=== PATIENT | female | born 1950 | race Caucasian/White ===

== ENCOUNTER 2018-01-01 06:50 | Emergency (ER) | payer MEDICARE, OTHER ==
[~2018-01-01] VITALS: Ht 170.2 cm; Wt 80.3 kg
[~2018-01-01 06:50] MED LIST: AMBIEN 5 MG TABL5 M1 PO; FLEXERIL PO; MEDROLDOSEPACK PO; RIZATRIPTAN5 M1 PO
[2018-01-01 07:30] LABS: URINE BILIRUBIN NEGATIVE (Negative); URINE BLOOD NEGATIVE (Negative); URINE CLARITY CLEAR; URINE COLOR YELLOW; URINE GLUCOSE-RANDOM NEGATIVE (Negative); URINE KETONES NEGATIVE (Negative); URINE LEUKOCYTES-REFLEX TRACE (Negative); URINE NITRITE-REFLEX NEGATIVE (Negative); URINE PROTEIN NEGATIVE (Negative); URINE SPECIFIC GRAVITY 1.025 (1.005-1.030); URINE UROBILINOGEN 0.2 E.U./dl (0.2-1.0)
[2018-01-01 07:39] LABS: ABSOLUTE EOSINOPHILS 0.2 thou/uL (0.0-0.7); ABSOLUTE LYMPHOCYTES 1.5 thou/uL (0.8-5.3); ABSOLUTE MONOCYTES 0.3 thou/uL (0.0-1.2); ABSOLUTE NEUTROPHILS 3.4 thou/uL (1.6-8.1); BASOPHILS 0.7 %; EOSINOPHILS 2.8 %; HEMATOCRIT 37.7 % (37.0-47.0); HEMOGLOBIN 12.8 gm/dL (12.0-15.0); MCH 31.2 pg (26.0-34.0); MCV 91.7 fL (80.0-100.0); MONOCYTES 6.3 %; MPV 7.9 fl. (7.2-11.1); NUCLEATED RBCS 0 /100WBC; PLATELET COUNT* 230 thou/uL (150-400); POLYS 63.2 %; RBC 4.11 mil/uL (4.20-5.00); RDW-CV 13.3 % (10.5-14.5); WBC 5.4 thou/uL (4.0-11.0)
[2018-01-01 07:46] LABS: CALCIUM 8.7 mg/dL (8.5-10.1); CREATININE 0.7 mg/dL (0.6-1.3); POTASSIUM 3.8 mmol/L (3.5-5.1)
[2018-01-01 07:48] LABS: APTT 25.8 Seconds (25.0-31.3); PROTIME 10.1 Seconds (9.20-11.50)
[2018-01-01 07:49] LABS: BACTERIA-REFLEX 1-9 Few /HPF (None Seen); CASTS None Seen /LPF (None Seen); CRYSTALS None Seen /LPF (None Seen); MUCUS 0-3 Light strn/LPF (None Seen); SQUAMOUS 0-3 Few /LPF (0-3); URINE RBC 0-2 Rare /HPF (0-2); URINE WBC-REFLEX 6-15 Few /HPF (0-5)
[2018-01-01 07:57] LABS: ALBUMIN 3.6 g/dL (3.4-5.0); TOTAL BILIRUBIN 0.5 mg/dL (<0.1-1.0); TOTAL PROTEIN 6.4 g/dL (6.4-8.2)
[2018-01-01] MEDS ORDERED: ZOFRAN ODT4 MG PO (10:20)
[2018-01-01] MEDS ORDERED: BENTYL 20 MG TA20 M1 PO (10:23)
[2018-01-01 10:45] VITALS: BP 134/76
== END 2018-01-01 10:45 | disposition home or self-care (01) ==
LOC: M.ERS 06:50
PROVIDERS: Personal Emergency Response Attendant
DX: K56.7 Ileus, unspecified (principal); G43.909 Migraine, unspecified, not intractable, without status migrainosus; Z90.49 Acquired absence of other specified parts of digestive tract; Z98.890 Other specified postprocedural states; Z88.1 Allergy status to other antibiotic agents; Z88.0 Allergy status to penicillin; Z88.7 Allergy status to serum and vaccine; Z88.8 Allergy status to other drugs, medicaments and biological substances

== ENCOUNTER → 2020-04-16 | Outpatient (CLI) | payer MEDICARE, OTHER ==
[~2020-04-16] MED LIST changes: +BENTYL 20 MG TA20 M1 PO; +ZOFRAN ODT4 MG PO
== END ==
LOC: M.CT 10:44
PROVIDERS: ATTEND Family Medicine
DX: R91.1 Solitary pulmonary nodule (principal)

== ENCOUNTER → 2020-05-21 | Outpatient (CLI) | payer MEDICARE, OTHER ==
--- NOTE | 2020-05-21 12:21 | 2DMMODE ---
[place] [address] 2 D/M-MODE ECHOCARDIOGRAM Name: SILVERIO GRADY Room: [facility]#: [id number] Admission: 05/21/20 Attend Phys: Navneet Del Toro, Discharge: Date of : 50 Date of Service: 05/21/20 1221 Report #: [id number] THIS REPORT FOR: cc: Kj Last Vincent R. DO Holkins,Roque Lozada MD [facility] ~ APPROVED REPORT Study performed: 05/21/2020 09:00:45 EXAM: Comprehensive 2D, Doppler, and color-flow Echocardiogram Patient Location: Out-Patient BSA: 1.98 HR: 80 bpm BP: 120/70 mmHg Other Information Study Quality: Fair Indications Family Hx. Heart failure 2D Dimensions IVSd: 11.02 (7-11mm) LVOT Diam: 20.35 (18-24mm) LVDd: 48.04 mm PWd: 10.39 (7-11mm) Ascending Ao: 30.34 (22-36mm) LVDs: 30.81 (25-40mm) Aortic Root: 29.17 mm Volumes Left Atrial Volume (Systole) LA ESV Index: 11.40 mL/m2 Aortic Valve AoV Peak Yves.: 1.00 m/s AO Peak Gr.: 3.97 mmHg LVOT Max P.37 mmHg AO Mean Gr.: 2.18 mmHg LVOT Mean P.03 mmHg LVOT Max V: 0.77 m/s AO V2 VTI: 19.18 cm LVOT Mean V: 0.46 m/s VINCENT (VTI): 2.53 cm2 LVOT V1 VTI: 14.95 cm Mitral Valve E/A Ratio: 0.68 [place] [address] 2 D/M-MODE ECHOCARDIOGRAM Name: SILVERIO GRADY Room: [facility]#: [id number] Admission: 05/21/20 Attend Phys: Navneet Del Toro, Discharge: Date of : 50 Date of Service: 05/21/20 1221 Report #: [id number] MV Decel. Time: 182.33 ms MV E Max Yves.: 0.46 m/s MV PHT: 52.88 ms MVA (PHT): 4.16 cm2 TDI E/Lateral E': 4.18 E/Medial E': 5.11 Medial E' Yves.: 0.09 m/s Lateral E' Yves.: 0.11 m/s Pulmonary Valve PV Peak Yves.: 0.90 m/s PV Peak Gr.: 3.27 mmHg Left Ventricle The left ventricle is normal size. There is normal LV segmental wall motion. There is normal left ventricular wall thickness. Left ventricular systolic function is normal. The left ventricular ejection fraction is within the normal range. LVEF is 55-60%. Grade I - abnormal relaxation pattern. Right Ventricle The right ventricle is normal size. The right ventricular systolic function is normal. Atria The left atrium size is normal. The right atrium size is normal. Aortic Valve The aortic valve is normal in structure. No aortic regurgitation is present. There is no aortic valvular stenosis. Mitral Valve The mitral valve is normal in structure. There is no mitral valve regurgitation noted. No evidence of mitral valve stenosis. Tricuspid Valve The tricuspid valve is normal in structure. There is no tricuspid valve regurgitation noted. Pulmonic Valve The pulmonary valve is normal in structure. There is no pulmonic valvular regurgitation. Great Vessels The aortic root is normal in size. IVC [place] [address] 2 D/M-MODE ECHOCARDIOGRAM Name: SILVERIO GRADY Room: [facility]#: [id number] Admission: 05/21/20 Attend Phys: Navneet Del Toro, Discharge: Date of : 50 Date of Service: 05/21/20 1221 Report #: [id number] collapses >50% with inspiration. Pericardium There is no pericardial effusion. <Conclusion> The left ventricle is normal size. There is normal left ventricular wall thickness. Left ventricular systolic function is normal. The left ventricular ejection fraction is within the normal range. LVEF is 55-60%. Grade I - abnormal relaxation pattern. The right ventricle is normal size. The left atrium size is normal. The aortic valve is normal in structure. The mitral valve is normal in structure. The tricuspid valve is normal in structure. IVC is normal in size and collapses >50% with inspiration. There is no pericardial effusion. There is normal LV segmental wall motion. <ELECTRONICALLY SIGNED> By: Roque Soriano MD, FACC 05/21/20 1221 1221 122 Roque Soriano MD, FACC /INF
== END ==
LOC: M.CRD 05-14 09:00
PROVIDERS: ATTEND Internal Medicine Cardiovascular Disease
DX: Z03.89 Encounter for observation for other suspected diseases and conditions ruled out (principal); Z82.49 Family history of ischemic heart disease and other diseases of the circulatory system

== ENCOUNTER → 2020-05-29 | Outpatient (CLI) | payer MEDICARE, OTHER | LOC: M.RAD 13:08 | PROVIDERS: ATTEND Family Medicine | DX: Z12.31 Encounter for screening mammogram for malignant neoplasm of breast (principal); Z00.00 Encounter for general adult medical examination without abnormal findings; M81.0 Age-related osteoporosis without current pathological fracture; M85.80 Other specified disorders of bone density and structure, unspecified site ==